=== PATIENT | female | born 1980 | race Hispanic/Latino ===

== ENCOUNTER 2021-07-31 20:13 | Emergency (ER) | payer MEDICAID ==
[2021-07-31] MEDS ORDERED: ONDANSETRON 4 MG/2 ML INJ IV ONE (20:51)
--- NOTE | 2021-07-31 21:00 | Emergency Department Report ---
ED Abdominal Pain HPI - General Chief Complaint: Abdominal Pain Stated Complaint: SIDE PAIN NAUSEA VOMITING Time Seen by Provider: 07/31/21 20:48 Source: patient Mode of arrival: Ambulatory Limitations: No Limitations - History of Present Illness Initial Comments: Patient 41-year-old female who presents for right lower quadrant pain with nausea vomiting x1 week.. Patient states recent UTI. patient denies fevers or chills. There is no hematuria however there is urinary frequency and urgency. Patient denies history of renal stones denies history of gallstones. Symptoms are exacerbated by movement. Symptoms are relieved by nothing tried. MD Complaint: abdominal pain - Related Data Home Medications Medication Instructions Recorded Confirmed Last Taken Pnv,Calcium 72/Iron,Carb/Folic 1 each PO DAILY 11/08/13 12/18/15 12/16/15 [ Plus Iron Tablet] Previous Rx's Medication Instructions Recorded Last Taken Type Ibuprofen [Motrin] 800 mg PO Q8HR PRN #30 tablet 12/18/15 Unknown Rx oxyCODONE /ACETAMINOPHEN [Percocet 1 tab PO Q6HR PRN #30 tablet 12/18/15 Unknown Rx 5/325] Ketorolac [Toradol] 10 mg PO Q6H PRN #12 tablet 08/01/21 Unknown Rx levoFLOXacin [Levaquin TAB] 500 mg PO DAILY #7 tablet 08/01/21 Unknown Rx Allergies Allergy/AdvReac Type Severity Reaction Status Date / Time No Known Allergies Allergy Verified 12/13/15 08:45 ED Review of Systems ROS: Stated complaint: SIDE PAIN NAUSEA VOMITING Other details as noted in HPI Constitutional: malaise. denies: chills, fever Eyes: denies: eye pain, eye discharge, vision change ENT: denies: ear pain, throat pain Respiratory: denies: cough, shortness of breath, wheezing Cardiovascular: denies: chest pain, palpitations Endocrine: no symptoms reported Gastrointestinal: abdominal pain, nausea, vomiting Genitourinary: urgency, dysuria, frequency. denies: hematuria Musculoskeletal: denies: back pain, joint swelling, arthralgia Skin: denies: rash, lesions Neurological: denies: headache, weakness, paresthesias, vertigo Psychiatric: denies: anxiety, depression Hematological/Lymphatic: denies: easy bleeding, easy bruising ED Past Medical Hx - Past Medical History Previous Medical History?: Yes Hx Hypertension: No Hx Congestive Heart Failure: No Hx Diabetes: No Hx Deep Vein Thrombosis: No Hx Renal Disease: No Hx Sickle Cell Disease: No Hx Headaches / Migraines: Yes (past hx migraines) Hx Seizures: No Hx Asthma: No Hx COPD: No Hx HIV: No - Surgical History Past Surgical History?: No - Social History Smoking Status: Former Smoker - Medications Home Medications: Home Medications Medication Instructions Recorded Confirmed Last Taken Type Pnv,Calcium 72/Iron,Carb/Folic 1 each PO DAILY 11/08/13 12/18/15 12/16/15 History [ Plus Iron Tablet] Ibuprofen [Motrin] 800 mg PO Q8HR PRN #30 tablet 12/18/15 Unknown Rx oxyCODONE /ACETAMINOPHEN [Percocet 1 tab PO Q6HR PRN #30 tablet 12/18/15 Unknown Rx 5/325] Ketorolac [Toradol] 10 mg PO Q6H PRN #12 tablet 08/01/21 Unknown Rx levoFLOXacin [Levaquin TAB] 500 mg PO DAILY #7 tablet 08/01/21 Unknown Rx ED Physical Exam - General Limitations: No Limitations General appearance: alert, in no apparent distress - Head Head exam: Present: atraumatic, normocephalic - Eye Eye exam: Present: normal appearance, EOMI Pupils: Present: normal accommodation - ENT ENT exam: Present: mucous membranes moist - Neck Neck exam: Present: normal inspection, full ROM. Absent: tenderness - Respiratory Respiratory exam: Present: normal lung sounds bilaterally. Absent: respiratory distress, wheezes - Cardiovascular Cardiovascular Exam: Present: regular rate, normal rhythm, normal heart sounds. Absent: systolic murmur, diastolic murmur, rubs, gallop - GI/Abdominal GI/Abdominal exam: Present: soft, tenderness, normal bowel sounds. Absent: distended, guarding, rebound, rigid, bruit, hernia - Expanded GI/Abdominal Exam Expanded GI/Abdominal exam: Present: Heath's sign. Absent: psoas sign, obturator sign, heel tap sign, Rovsing's sign, tenderness at Mcburney's Point - Rectal Rectal exam: Present: deferred - Extremities Exam Extremities exam: Present: normal inspection, full ROM, normal capillary refill. Absent: tenderness - Back Exam Back exam: Present: normal inspection, full ROM. Absent: CVA tenderness (R), CVA tenderness (L) - Neurological Exam Neurological exam: Present: alert, oriented X3, CN II-XII intact, normal gait - Psychiatric Psychiatric exam: Present: normal affect, normal mood - Skin Skin exam: Present: warm, dry, intact, normal color. Absent: rash ED Course Vital Signs 07/31/21 07/31/21 07/31/21 20:18 21:37 21:53 Temperature 99.6 F 97.8 F 98.0 F Pulse Rate 101 H 81 73 Respiratory 18 16 14 Rate Blood Pressure 126/67 121/73 Blood Pressure 122/75 [Right] O2 Sat by Pulse 96 99 99 Oximetry 08/01/21 03:13 Temperature Pulse Rate Respiratory 18 Rate Blood Pressure Blood Pressure [Right] O2 Sat by Pulse Oximetry ED Medical Decision Making - Lab Data Result diagrams: 07/31/21 21:16 07/31/21 21:16 Labs 07/31/21 07/31/21 08/01/21 21:16 21:16 Unknown WBC 12.2 H RBC 4.47 Hgb 13.7 Hct 41.1 MCV 92 MCH 31 MCHC 33 RDW 13.1 L Plt Count 304 Lymph % (Auto) 16.0 [place] % (Auto) 12.8 H Eos % (Auto) 0.4 Baso % (Auto) 0.6 Lymph # (Auto) 1.9 [place] # (Auto) 1.6 H Eos # (Auto) 0.0 Baso # (Auto) 0.1 Seg Neutrophils % 70.2 H Seg Neutrophils # 8.5 H Sodium 136 L Potassium 4.4 Chloride 98.2 Carbon Dioxide 24 Anion Gap 18 BUN 12 Creatinine 0.8 Estimated GFR > 60 BUN/Creatinine Ratio 15 Glucose 101 H Calcium 9.9 Total Bilirubin 0.70 AST 13 ALT 11 Alkaline Phosphatase 71 Total Protein 7.4 Albumin 4.2 Albumin/Globulin Ratio 1.3 Lipase 20 Urine Color Yellow Urine Turbidity Cloudy Urine pH 5.0 Ur Specific [place] 1.012 Urine Protein 100 mg/dl Urine Glucose (UA) Neg Urine Ketones 20 Urine Blood Lg Urine Nitrite Pos Urine Bilirubin Neg Urine Urobilinogen < 2.0 Ur Leukocyte Esterase Lg Urine WBC (Auto) > 182.0 H Urine RBC (Auto) 156.0 U Epithel Cells (Auto) 6.0 Urine Bacteria (Auto) 4+ Urine WBC Clumps 2+ Urine Mucus Few Urine Yeast (Budding) 1+ - Radiology Data Radiology results: report reviewed, image reviewed CT abdomen and pelvis demonstrated bilateral pyelonephritis. - Medical Decision Making Discussed CT findings of bilateral pyelonephritis, urine with WBCs leukocytes nitrates, offered admission patient declines. States symptoms are better with medication given in ED, plan patient DC'd home with prescriptions. Patient will follow with urology in 1 to 2 days. Patient will return to emergency room should she experience worsening symptoms. Patient DC'd home in stable condition at this time.. Patient is currently voiding without symptoms. Critical care attestation.: If time is entered above; I have spent that time in minutes in the direct care of this critically ill patient, excluding procedure time. ED Disposition Clinical Impression: Pyelonephritis Disposition: HOME / SELF CARE / HOMELESS Is pt being admited?: No Does the pt Need Aspirin: No Condition: Stable Instructions: Abdominal Pain (ED), Pyelonephritis, Adult Additional Instructions: Take medications as prescribed, follow-up with urology in 2 to 3 days. Follow- up with your primary care doctor in 2 to 3 days. Return to emergency if symptoms worsen or unable to void. Prescriptions: levoFLOXacin [Levaquin TAB] 500 mg PO DAILY #7 tablet Ketorolac [Toradol] 10 mg PO Q6H PRN #12 tablet PRN Reason: Pain Referrals: PRIMARY CARE, [Primary Care Provider] - 3-5 Days SHAY FALLON MD [Staff Physician] - 3-5 Days JOLENE RANDALL MD [Staff Physician] - 3-5 Days Forms: Work/School Release Form(ED) Time of Disposition: 04:39
[2021-07-31 21:30] LABS: Basophils # (Auto) 0.1 K/mm3 (0.0-0.1); Basophils % (Auto) 0.6 % (0.0-1.8); Eosinophils % (Auto) 0.4 % (0.0-4.3); Hematocrit 41.1 % (30.3-42.9); Hemoglobin 13.7 gm/dl (10.1-14.3); Lymphocytes # (Auto) 1.9 K/mm3 (1.2-5.4); Mean Corpuscular HGB Conc 33 % (30-34); Mean Corpuscular Volume 92 fl (79-97); Monocytes # (Auto) 1.6 K/mm3 (0.0-0.8); Monocytes % (Auto) 12.8 % (0.0-7.3); Platelet Count 304 K/mm3 (140-440); Red Blood Count 4.47 M/mm3 (3.65-5.03); Red Cell Distribution Width 13.1 % (13.2-15.2)
[2021-07-31 21:48] LABS: Alanine Aminotransferase 11 units/L (7-56); Albumin 4.2 g/dL (3.9-5); BUN/Creatinine Ratio 15; Blood Urea Nitrogen 12 mg/dL (7-17); Calcium 9.9 mg/dL (8.4-10.2); Hemolysis Index 10
[2021-07-31] MEDS ORDERED: SODIUM CHLORIDE 0.9% 1000 ML 1,000 ML IV ONE (22:35)
[2021-08-01 02:22] LABS: Bacteria,Urine 4+ /HPF (Negative); Bilirubin,Urine NEG (Negative); Blood,Urine LG (Negative); Color,Urine Yellow (Yellow); Mucus,Urine FEW /HPF; Urobilinogen,Urine < 2.0 mg/dL (<2.0); WBC,Urine > 182.0 /HPF (0.0-6.0)
[2021-08-01] MEDS ORDERED: KETOROLAC 30 MG/1 ML INJ IV ONE (02:52)
[2021-08-01] MEDS ORDERED: cefTRIAXone/NS 1 GM/50 ML 1 GM/50 ML BAG IV ONE (02:57)
--- NOTE | 2021-08-01 04:32 | Cat Scan Report ---
CT ABDOMEN AND PELVIS WITH CONTRAST INDICATION / CLINICAL INFORMATION: R.L.Q. abdominal pain with N/V x 1 week. TECHNIQUE: Axial CT images were obtained through the abdomen and pelvis after Omnipaque 300, 100 cc I V contrast. All CT scans at this location are performed using CT dose reduction for ALARA by means o f automated exposure control. COMPARISON: None available. FINDINGS: LOWER CHEST: No significant abnormality. LIVER: No significant abnormality. GALLBLADDER: No significant abnormality. BILE DUCTS: No significant abnormality. PANCREAS: No significant abnormality. SPLEEN: No significant abnormality. ADRENALS: No significant abnormality. RIGHT KIDNEY / URETER: Abnormal enhancement upper pole measuring 2.6 cm. Mild adjacent inflammation. LEFT KIDNEY / URETER: Small foci of abnormal enhancement lower pole STOMACH / SMALL BOWEL: No significant abnormality. COLON: No significant abnormality. APPENDIX: No significant abnormality. PERITONEUM: No free fluid. No free air. No fluid collection. LYMPH NODES: No significant adenopathy. VASCULAR STRUCTURES: No significant abnormality. URINARY BLADDER: No significant abnormality. REPRODUCTIVE ORGANS: Previous bilateral tubal ligation. ADDITIONAL FINDINGS: None. SKELETAL SYSTEM: No significant abnormality. IMPRESSION: Bilateral pyelonephritis right greater than left. Signer Name: Rick Swann MD Signed: 08/01/2021 4:28 AM Workstation Name: [id number]
[2021-08-01 04:57] VITALS: BP 118/78
== END 2021-08-01 04:58 | disposition home or self-care (01) ==
LOC: ED 20:13
DX: N12 Tubulo-interstitial nephritis, not specified as acute or chronic (principal); Z87.891 Personal history of nicotine dependence
CPT/HCPCS: 36415; 74177; 80053; 81001; 83690; 85025; 96361; 96365; 96375; 99284; J0696; J1885; J2405; J7030; Q9967; Q0162